=== PATIENT | female | born 1980 | race Hispanic/Latino ===

== ENCOUNTER 2018-03-20 06:57 | Day surgery (SDC) | payer BC ==
[2018-03-17 08:43] VITALS: BMI 19.1
[2018-03-20] MEDS ORDERED: Succinylcholine 200 mg/10 ml Inj IV ONE (07:16)
[2018-03-20] MEDS ORDERED: cefOXitin IV 1 gm in Dextrose 1 GM/50 ML BAG IVPB ONE (07:16)
[2018-03-20] MEDS ORDERED: Rocuronium 10 mg/ml (5 ml) ONE (07:16)
[2018-03-20] MEDS ORDERED: Methylene Blue 10 mg/mL(10ml) IV ONE ×2 (07:16→09:40)
[2018-03-20] MEDS ORDERED: Propofol 10 mg/ml Inj (20 ML) ONE (07:16)
[2018-03-20] MEDS ORDERED: ePHEDrine 50 mg/ml Inj ONE (07:20)
[2018-03-20 07:57] VITALS: RESP 18
[2018-03-20] MEDS ORDERED: Lactated Ringer's 1,000 ML IV ONE (08:14)
[2018-03-20 08:30] LABS: MEAN CELL VOLUME 91.8 fl (81.0-99.0); MEAN CORPUSCULAR HEMOGLOBIN 30.5 pg (27.0-31.0); MEAN CORPUSCULAR HGB CONC 33.2 g/dL (33.0-37.0); RBC 4.26 Mil/uL (3.80-5.20); RED CELL DISTRIBUTION WIDTH 13.1 % (11.5-14.5); WHITE BLOOD COUNT 5.7 K/uL (4.8-10.8)
[2018-03-20] MEDS ORDERED: Midazolam 2 MG/2 ML VIAL ONE (08:51)
[2018-03-20] MEDS ORDERED: Dexamethasone 4 mg/1 ml ONE (09:14)
[2018-03-20] MEDS ORDERED: Phenylephrine 10 mg/ml Inj ONE (09:28)
[2018-03-20] MEDS ORDERED: HYDROmorphone 0.5 mg/0.5 ml ISec IVP PRN (10:10)
[2018-03-20 12:15] VITALS: TEMP 98.3
[2018-03-20 12:47] VITALS: BP 111/66; PULSE 73; O2SAT 100
--- NOTE | 2018-03-22 17:15 | OP ---
PROCEDURE DATE: 03/20/2018 PREOPERATIVE DIAGNOSIS: Pelvic pain. POSTOPERATIVE DIAGNOSIS: Pelvic pain. PROCEDURE: Laparoscopy and chromotubation. SURGEON: Jan Moncada MD ANESTHESIA ADMINISTERED BY: Dr. Cyr. TYPE OF ANESTHESIA: General anesthesia. FINDINGS: After pushing the dye, both tubes are patent. DESCRIPTION OF PROCEDURE: With the patient in the dorsal lithotomy position, under general anesthesia, the patient was prepped and draped in the usual sterile manner, a straight catheter was used to empty the bladder after which the weighted speculum was placed in the posterior vagina. Cervix was grasped anteriorly with single-tooth tenaculum and dilated. There was a little problem getting into the cervix to measure the uterine cavity, however, it sounded to about 7 cm. After this was done, larger acorn was used. We then moved to the abdomen where a small Veress needle was used to enter the abdominal cavity after tenting the abdomen. After the abdomen was inflated to about 4 L of CO2, a small incision was made over the umbilicus about 0.5 cm and #5 trocar was introduced, leaving the sleeve in place and then the laparoscope was used to enter the abdominopelvic cavity and visualize the abdominal and the pelvic organs. After this was done a second puncture over the midline about 2 cm above the pubic bone and #5 trocar used, sleeve left into place and trocar removed. After this was done, the dye was hooked up to the acorn and under direct visualization, the dye was pushed and the spillage was observed bilaterally showing that both tubes were patent. After this was done, the syringe was removed from the acorn and the abdomen was deflated. Following this, incisions were closed with 1 Vicryl on it covered with Dermabond, maintaining hemostasis. Instruments were then removed from the vagina. Blood loss was minimal. The patient tolerated the procedure well and was in satisfactory condition way to recovery room. Jan Moncada MD [facility]
== END 2018-03-20 13:35 | disposition home or self-care (01) ==
LOC: H.OPSURG 06:57
PROVIDERS: ATTEND Specialist
DX: R10.2 Pelvic and perineal pain (principal); E28.2 Polycystic ovarian syndrome; R06.83 Snoring
CPT/HCPCS: 36415; 49320; 58350; 85027; 86850; 86900; J0330; J0694; J1100; J2001; J2250; J2370; J2405; J2704; J3010; J7030; J7120